=== PATIENT | male | born 1950 | race African-American/Black ===

== ENCOUNTER 2018-05-20 01:56 | Emergency (ER) | payer MEDICARE, MEDICAID ==
[~2018-05-20] VITALS: Ht 190.5 cm; Wt 84.0 kg
[~2018-05-20 01:56] MED LIST: COLCHICINE; HYDROCHLOROTHIAZIDE; NORCO
[2018-05-20 02:00] VITALS: BP 133/89
== END 2018-05-20 11:31 | disposition left against medical advice (07) ==
LOC: ER 01:56
DX: Z53.21 Procedure and treatment not carried out due to patient leaving prior to being seen by health care provider (principal)

== ENCOUNTER 2023-01-30 02:04 | Emergency (ER) | payer BC, MEDICAID ==
[~2023-01-30] VITALS: Ht 177.8 cm; Wt 90.0 kg
[2023-01-30 02:06] VITALS: O2SAT 100
[2023-01-30] MEDS ORDERED: ASPIRIN 325MG TABLET PO ONE (06:00)
[2023-01-30 06:24] VITALS: BP 116/89; PULSE 71; RESP 12; TEMP 97.6
[2023-01-30 06:35] LABS: BASOPHILS % 0.7 % (0.0-2.0); EOSINOPHILS % 3.2 % (0.0-5.0); HEMATOCRIT. 41.4 % (42.0-52.0); HEMOGLOBIN. 13.6 g/dL (14.0-18.0); LYMPHOCYTES % 39.4 % (20.0-50.0); MEAN CORPUSCULAR HEMOGLOBIN 28.1 pg (28.0-32.0); MEAN CORPUSCULAR HGB CONC 32.9 g/dL (31.0-37.0); MEAN CORPUSCULAR VOLUME 85.4 fL (80.0-94.0); MEAN PLATELET VOLUME 8.7 fl (7.4-10.4); MONOCYTES % 6.8 % (2.0-8.0); NEUTROPHILS % 49.9 % (40.0-76.0); PLATELET 235 x1000/uL (130-400); RED BLOOD CELL COUNT 4.85 mill/uL (4.7-6.1); RED CELL DISTRIBUTION WIDTH 15.4 % (11.6-14.6)
[2023-01-30 06:45] LABS: PROTHROMBIN TIME 10.3 sec (9.6-11.0)
[2023-01-30 06:48] LABS: CHLORIDE 103 mEq/L (98-107); INDEX HEMOLYSI 3 (1-3); INDEX ICTERIC 1 (1-4); INDEX LIPEMIC 1 (1-3); POTASSIUM 4.4 mEq/L (3.5-5.1); SODIUM 137 mEq/L (136-145)
[2023-01-30 06:58] LABS: ALANINE AMINOTRANSFERASE 21 IU/L (13-61); ALBUMIN 3.8 g/dL (3.4-5.0); ASPARTATE AMINOTRANSFERASE 27 IU/L (15-37); BILIRUBIN TOTAL 0.5 mg/dL (0.1-1.0); CALCIUM 9.2 mg/dL (8.5-10.1); CARBON DIOXIDE 25 mEq/L (21-32); CREATININE 0.9 mg/dL (0.6-1.3); ETHANOL BLOOD 64 mg/dL (<10); GLUCOSE 93 mg/dL (70-105); PROTEIN TOTAL 8.5 g/dL (6.0-8.3); TROPONIN I HIGH SENSITIVITY 8 ng/L (<78); UREA NITROGEN BLOOD 7 mg/dL (7-21)
[2023-01-30] MEDS ORDERED: ASPIRIN 325MG TABLET PO SCH (07:45)
[2023-01-30 08:59] LABS: TROPONIN I HIGH SENSITIVITY 8 ng/L (<78)
== END 2023-01-30 09:43 | disposition home or self-care (01) ==
LOC: ER 02:04
DX: F10.20 Alcohol dependence, uncomplicated (principal); E11.9 Type 2 diabetes mellitus without complications; I10 Essential (primary) hypertension; Y90.3 Blood alcohol level of 60-79 mg/100 ml
CPT/HCPCS: 36415; 71045; 80053; 80320; 84484; 85025; 93005; 99285; G0480